=== PATIENT | female | born 2000 | race Caucasian/White ===

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

== ENCOUNTER 2022-04-14 09:16 | Outpatient (RCR) | payer OTHER | END 2022-04-16 | disposition home or self-care (01) | PROVIDERS: ATTEND Orthopaedic Surgery | DX: M25.511 Pain in right shoulder (principal); Z98.890 Other specified postprocedural states ==

== ENCOUNTER 2022-04-28 11:17 | Outpatient (RCR) | payer OTHER | END 2022-04-28 12:22 | disposition home or self-care (01) | PROVIDERS: ATTEND Orthopaedic Surgery | DX: M25.511 Pain in right shoulder (principal); Z98.890 Other specified postprocedural states ==